=== PATIENT | female | born 1995 ===

== ENCOUNTER 2018-07-08 09:23 | Day surgery (SDC) | payer OTHER ==
--- NOTE | 2018-06-30 10:34 | HP ---
PREOPERATIVE HISTORY AND PHYSICAL: DATE OF SURGERY/ADMISSION: 07/08/18 DATE OF OFFICE VISIT/ENCOUNTER: 06/27/18 ATTENDING SURGEON: Radha Argueta MD* (dictated by URTH Mulligan). PROCEDURE: Right forearm compartment release. CHIEF COMPLAINT: Pain, right forearm. HISTORY OF PRESENT ILLNESS: This is a 23-year-old female with ongoing right forearm pain since 2010. She has had 2 surgeries on the forearm including a muscle debulking in 2010 and a fascia release in 2011. At times, physical therapy and ultrasound treatments were helpful. However, ultimately, the patient has persisted. Pain is located in the proximal volar aspect of the forearm around the incision from her second surgery. She has had an MRI of the arm and vascular study, both of which were normal. A compartment pressure test was also normal. An MRI of her C-spine did not show any nerve impingement. The patient continues to complain of pain in the forearm. She is not interested in pursuing any more conservative management. She has consented to proceed with surgical intervention at this time in the form of a right forearm compartment release. PAST MEDICAL HISTORY: 1. Fibromyalgia. 2. Depression/anxiety. 3. G6PD deficiency. 4. Tietze's syndrome. PAST SURGICAL HISTORY: Right arm surgery x2, fascia release on muscle debulking. MEDICATIONS: 1. Afluria preservative-free, inject 0.5 mL intramuscularly. 2. Fluoxetine/HCL 20 mg. 3. Multivitamin daily. 4. Naproxen 500 mg b.i.d. p.r.n. 5. Niacin 250 mg daily. 6. Flexeril 10 mg t.i.d. p.r.n. MEDICATION ALLERGIES: LORABID and SULFA, decreased hematocrit. FAMILY MEDICAL HISTORY: Noncontributory. SOCIAL HISTORY: The patient is employed at [employer] in [employer]. She denies tobacco use and recreational drug use. She does drink alcohol on occasion. REVIEW OF SYSTEMS: General: Negative for fevers, chills, night sweats, unexplained weight loss/gain. No known anesthesia problems. HEENT: Negative for headache, lightheadedness, syncopal episodes, visual changes. Integumentary : Negative for abrasions, lesions, open wounds. Cardiothoracic: Negative for hypertension, chest pain, palpitations, or edema. Respiratory: Negative for shortness of breath with exertion. Chronic cough and wheezing. GI: Negative for nausea, vomiting, diarrhea, constipation, or GERD. : Negative for nocturia, urinary frequency, urgency, history of UTIs, or kidney problems. Musculoskeletal: Positive for current complaint. Neurologic: Negative for chronic or intermittent back pain or history of fractures. Neurological: Negative for paresthesias, numbness, history of seizures, stroke, or poor balance. Positive for anxiety/depression. Endocrine: Negative for diabetes and thyroid issues. Hematologic: Positive for G6PD deficiency. Negative for easy bruising, anemia, history of DVT. Infectious Disease: Negative for history of MRSA, hepatitis C, or HIV. PHYSICAL EXAMINATION GENERAL: Well-developed, well-nourished 23-year-old female, in no acute distress. VITAL SIGNS: Height 5 feet 2 inches, weight 156 pounds, pulse rate 84, blood pressure 120/76. HEENT: Normocephalic, atraumatic. Pupils are equal, round, and reactive to light and accommodation. Extraocular movements are intact. NECK: Supple. No palpable lymph nodes. Throat is clear. PULMONARY: Lungs are clear to auscultation bilaterally. No wheezes, rales, or rhonchi. CARDIOVASCULAR: Regular rate and rhythm. S1 and S2. No murmurs, rubs, or gallops. No edema. ABDOMEN: Positive bowel sounds, soft, nontender. NEUROLOGIC: Alert and oriented x3. Cranial nerves II through XII are intact. Sensation is intact to light touch. MUSCULOSKELETAL: On exam of the right forearm, she has full range of motion of the elbow, wrist, and fingers. She can make a full fist. Neurovascular function is intact. She has muscle bulging in the proximal volar forearm just lateral to the proximal scar. It is tender to palpation. She has good strength. IMAGING STUDIES: Please see HPI. IMPRESSION: Persistent right forearm pain perhaps caused by scar tissue. PLAN: The patient is scheduled to undergo right forearm compartment release with Dr. Argueta on 07/08/18. She will return to the office in 10 days postop for followup and suture removal. A prescription for Ultracet was e-scribed to the patient's pharmacy for postoperative pain management. RUTH MULLIGAN [id number]/[facility] #: [id number] [facility] HOSPITALCristina
[~2018-07-08 09:23] MED LIST: Buffered Lidocaine 0.9% SYRIN* 5 ML/SYR SYRINGE INTRADERM ONE; Sodium Citrate/Citric Acid* 15 ML UDC PO ONE
[2018-07-08] MEDS ORDERED: Sodium Citrate/Citric Acid* 15 ML UDC ONE (10:13)
[2018-07-08] MEDS ORDERED: ROPIVACAINE 5 MG/ML 30 ML BTL (0.5%) ONE (11:19)
[2018-07-08] MEDS ORDERED: Propofol* 10 MG/ML 20 ML BTL IV PUSH ONE (11:38)
[2018-07-08] MEDS ORDERED: Naloxone* 0.4 MG/ML 1 ML VIAL IV PRN (12:14)
[2018-07-08 13:23] VITALS: BP 101/67
--- NOTE | 2018-07-09 01:18 | OP ---
DATE OF OPERATION: 07/08/18 [facility] DATE OF : [birth year] SURGEON: Radha Argueta MD HOOKMAN: RUTH Mulligan ANESTHESIA: General. PRE-OP DIAGNOSIS: Right forearm pain. POST-OP DIAGNOSIS: Right forearm pain. OPERATIVE PROCEDURE: Scar revision and compartment release of the right forearm. INDICATIONS FOR PROCEDURE: Afshan is a 23-year-old female who has had compartment release of the right forearm in the past. She did very well with pain relief after the surgery; however, the symptoms have recurred recently and have not been controlled with conservative measures and physical therapy. She did have compartment pressures measured by Dr. Waite and they were all normal and did not elevate with exercise; however, the patient has persistent pain. She has negative nerve conduction studies. She presents for revision of the right forearm scar and further compartment release. OPERATIVE FINDINGS: The patient had a very widened scar and this was excised. Additionally, she had some fairly abundant scar tissue radial to the previous scar and all of her muscles were normal appearing. ESTIMATED BLOOD LOSS: Zero. TOURNIQUET TIME: About 25 minutes. DESCRIPTION OF PROCEDURE: The patient was brought to the operating room, was given a general anesthetic, and placed in the supine position on the operating table with a tourniquet around her right upper arm. The skin of her right upper extremity was prepped and draped in the usual sterile fashion. The upper extremity was exsanguinated and the tourniquet elevated to 250 mmHg. The previous scar was excised and was sent for pathology. We then dissected deep to the previous scar. There was abundant scar tissue overlying the muscle belly. This was debrided. All the muscle bellies were in good condition. There was no necrotic or ischemic looking muscle tissue. The wound was copiously irrigated with saline. The subcutaneous tissue was closed with 3-0 Polysorb and the skin with skin carina. The wound was dressed with Xeroform, 4x4, Webril, and an Nolberto wrap. The patient tolerated the procedure well and was brought to the recovery room in good condition. [id number]/[facility] #: [id number] ZOIE
--- NOTE | 2018-07-12 11:45 | OP ---
ADDENDUM TO OPERATIVE NOTE DATE OF OPERATION: 07/08/2018. The line of the first blank should read: Additionally, she had some fairly abundant scar tissue radi al to the previous scar and all of her muscles were normal appearing. The line of the second blank should read: We then dissected deep to the previous scar. There was ab undant scar tissue overlying the muscle belly. This was debrided. All the muscle bellies were in go od condition. [id number]/[facility] #: [id number]
== END 2018-07-08 13:39 | disposition home or self-care (01) ==
LOC: OREAST 09:23
PROVIDERS: ATTEND Orthopaedic Surgery
DX: L90.5 Scar conditions and fibrosis of skin (principal); M79.631 Pain in right forearm; M79.7 Fibromyalgia; F41.8 Other specified anxiety disorders; M94.0 Chondrocostal junction syndrome [Tietze]
CPT/HCPCS: 81025; A9270-GY; J2704; J2795